=== PATIENT | female | born 1930 | race Caucasian/White ===

== ENCOUNTER 2017-11-24 11:20 | Inpatient (IN) ==
--- NOTE | 2017-11-24 11:45 | Emergency Department Note ---
ED Disposition Clinical Impression: Atrial fibrillation with slow ventricular response, Acute respiratory failure with hypoxia Pneumonia Qualifiers: Pneumonia type: due to unspecified organism Laterality: bilateral Lung location : lower lobe of lung Qualified Code(s): J18.1 - Lobar pneumonia, unspecified organism Hypotension Qualifiers: Hypotension type: unspecified hypotension type Qualified Code(s): I95.9 - Hypotension, unspecified Disposition: Admitted as Observation Condition on Discharge: Serious - Critical Care Critical Care Time: Yes Attestation: On 11/24/17, the high probability of a clinically significant, sudden or life threatening deterioration of the following system(s) required my full and direct attention, intervention and personal management. The time I documented below is in addition to time spent performing reported procedures but includes the following listed in this critical care notation. Total Critical Care Time: 45 Vital system(s) involved:: Circulatory Failure, Respiratory Failure My critical care processes included: Assessment & monitoring of V/S, Initial and Re-exams, Data Review/Interpretation, Coordinating Care, Medication Orders and management, Documentation Medical Decision Making - Alfredo Inquiry Pt receiving controlled substance: No Vital Signs: 11/24/17 11:23 11/24/17 11:52 11/24/17 14:22 Temperature 98 F Temperature Source Temporal Artery Scan Pulse Rate Pulse Rate [Right Brachial] 51 L 57 L 68 Respiratory Rate 16 26 H 16 Blood Pressure Blood Pressure [Right Arm] 110/55 111/61 118/70 Blood Pressure Mean [Right Arm] 73 77 86 Blood Pressure Source Blood Pressure Source [Right Arm] Automatic Cuff Blood Pressure Position Blood Pressure Position [Right Arm] Supine 02 Sat by Pulse Oximetry 98 100 99 Oxygen Delivery Method Nasal Cannula Non-Rebreather Oxygen Flow Rate (LPM) 15 11/24/17 15:00 11/24/17 15:08 11/24/17 16:00 Temperature 97.9 F Temperature Source Oral Pulse Rate Pulse Rate [Right Brachial] 68 73 Respiratory Rate 15 20 Blood Pressure Blood Pressure [Right Arm] 112/70 124/67 Blood Pressure Mean [Right Arm] 84 86 Blood Pressure Source Blood Pressure Source [Right Arm] Automatic Cuff Blood Pressure Position Blood Pressure Position [Right Arm] Supine 02 Sat by Pulse Oximetry 100 100 Oxygen Delivery Method Non-Rebreather Nasal Cannula Oxygen Flow Rate (LPM) 15 11/24/17 16:01 Temperature 98.0 F Temperature Source Tympanic Pulse Rate 68 Pulse Rate [Right Brachial] Respiratory Rate 15 Blood Pressure 112/70 Blood Pressure [Right Arm] Blood Pressure Mean [Right Arm] Blood Pressure Source Automatic Cuff Blood Pressure Source [Right Arm] Blood Pressure Position Sitting Blood Pressure Position [Right Arm] 02 Sat by Pulse Oximetry Oxygen Delivery Method Non-Rebreather Oxygen Flow Rate (LPM) - Lab Data Lab Results 11/24/17 11:37: WBC 16.3 H, RBC 4.19 L, Hgb 11.5 L, Hct 37.4, MCV 89.4, MCH 27.5 , MCHC 30.8 L, RDW 15.2, Plt Count 190, MPV 9.4, Neut % (Auto) 68.1, Lymph % ( Auto) 23.1, [place] % (Auto) 6.8, Eos % (Auto) 1.5, Baso % (Auto) 0.4, Neut # (Auto ) 11.1 H, Lymph # (Auto) 3.8, [place] # (Auto) 1.1 H, Eos # (Auto) 0.2, Baso # ( Auto) 0.1, Total Counted 100, Neutrophils % (Manual) 73, Lymphocytes % (Manual) 18, Atypical Lymphs % 1.0, Monocytes % (Manual) 7, Eosinophils % (Manual) 1, Nucleated RBCs 3, Platelet Estimate Normal, RBC Morphology Normal 11/24/17 11:37: Sodium 134 L, Potassium 5.6 H, Chloride 97 L, Carbon Dioxide 29 , Anion Gap 13.6, BUN 30 H, Creatinine 1.17 H, Estimated Creat Clear 26, Estimated GFR 44 L, Est GFR ( Amer) 53 L, Glucose 123 H, Calcium 9.0, Total Bilirubin 0.9, AST 30, ALT 34, Alkaline Phosphatase 83, Total Creatine Kinase 18 L, CK-MB (CK-2) 0.8, CK-MB (CK-2) Rel Index 4.4 H, Troponin I < 0.02, Total Protein 6.7, Albumin 3.1 L, Globulin 3.6 H, Albumin/Globulin Ratio 0.9 L, TSH 2.44, Free T4 Index 3.2 L, Thyroxine (T4) 7.9, T3 Uptake 41 H 11/24/17 11:37: B-Natriuretic Peptide 1290 H 11/24/17 11:50: Specimen Source Right radial, O2 % 100, ABG pH 7.35, ABG pCO2 46.5 H, ABG pO2 130.0 H, ABG HCO3 25.2, ABG Total CO2 26.6, ABG O2 Saturation 98 , ABG Base Excess -0.4, Gil Test Acceptable 11/24/17 14:26: Lactic Acid 1.6 Result diagrams: 11/24/17 11:37 11/24/17 11:37 Orders (Tests/Meds): ED MEDICATIONS Generic Name Dose Route Start Last Admin Trade Name Gayatri PRN Reason Stop Dose Admin Acetaminophen 650 mg 11/24/17 16:44 Acetaminophen 325mg Tab PO 12/24/17 16:43 Q4HP PRN As Needed for Fever or Pain Sodium Chloride 1,000 mls @ 75 mls/hr 11/24/17 16:44 11/24/17 17:07 Sod Chlor 0.9% 1000ml Bag IV 12/24/17 16:43 75 mls/hr .[id number] JEAN MARIE Administration Ertapenem 0.5 gm/ Sodium 50 mls @ 100 mls/hr 11/25/17 14:00 Chloride IV 12/08/17 13:59 Q24H JEAN MARIE Protocol Levofloxacin/Dextrose 500 mg in 100 mls @ 100 mls/hr 11/25/17 16:00 Levaquin 500mg/100ml Premix IV 12/08/17 15:59 Q24H JEAN MARIE Protocol Vancomycin HCl 1,000 mg/ 250 mls @ 125 mls/hr 11/25/17 18:00 Sodium Chloride IV 12/09/17 17:59 Q24H JEAN MARIE Miscellaneous 1 each 11/24/17 16:44 11/24/17 17:06 Vancomycin Consult Request NOTAPPLIC 11/24/17 16:45 Not Given CONSULT PHARMACY ONE Sodium Chloride 10 ml 11/24/17 16:44 Saline Flush 10ml Syringe IV 12/24/17 16:43 NEEDED PRN Maintain IV Site Discontinued Medications Generic Name Dose Route Start Last Admin Trade Name Freedgardo PRN Reason Stop Dose Admin Levofloxacin/Dextrose 750 mg in 150 mls @ 100 mls/hr 11/24/17 14:00 11/24/17 14:31 Levofloxacin 750mg/150ml Premix IV 12/08/17 13:59 100 mls/hr Q24H JEAN MARIE Administration Protocol Ertapenem 1 gm/ Sodium 50 mls @ 100 mls/hr 11/24/17 14:00 11/24/17 17:03 Chloride IV 12/08/17 13:59 Not Given Q24H JEAN MARIE Protocol Ertapenem 0.5 gm/ Sodium 50 mls @ 100 mls/hr 11/24/17 14:00 11/24/17 17:05 Chloride IV 12/08/17 13:59 100 mls/hr Q24H JEAN MARIE Administration Protocol Levofloxacin/Dextrose 500 mg in 100 mls @ 100 mls/hr 11/24/17 16:00 11/24/17 17:03 Levaquin 500mg/100ml Premix IV 12/08/17 15:59 Not Given Q24H JEAN MARIE Protocol Vancomycin HCl 1,000 mg/ 250 mls @ 125 mls/hr 11/24/17 17:00 Sodium Chloride IV 11/24/17 18:59 ONCE ONE Vancomycin HCl 750 mg/ Sodium 250 mls @ 125 mls/hr 11/25/17 17:00 Chloride IV 12/09/17 16:59 Q24H JEAN MARIE Vancomycin HCl 1,000 mg/ 250 mls @ 125 mls/hr 11/24/17 17:00 11/24/17 17:07 Sodium Chloride IV 11/24/17 18:59 Not Given ONCE ONE Vancomycin HCl 1,250 mg/ 250 mls @ 125 mls/hr 11/24/17 18:00 11/24/17 18:31 Sodium Chloride IV 11/24/17 19:59 125 mls/hr ONCE ONE Administration Miscellaneous 1 each 11/24/17 13:53 11/24/17 17:04 Vancomycin Consult Request NOTAPPLIC 11/24/17 13:54 1 each CONSULT PHARMACY ONE Administration ORDERS Category Date Time Status Consult to Physician [CONS] Routine Cons 11/24/17 16:44 Ordered CA echo doppler complete Routine Exams 11/24/17 16:44 Ordered Troponin I Q3H Lab 11/24/17 22:44 Ordered - ECG Data Tracing #1 EKG interpreted by Mika Howell MD: Rhythm: Narrow complex bradycardia, I believe this is slow atrial fibrillation, it is irregular. Some sawtooth waves between QRS complexes I believe to be flutter waves. Rate: 58-60 [place]: normal Ectopy: none Conduction: normal ST Segment Changes: Anterior depression T Wave Changes: Inferior and anterior inversion Q Waves: none No evidence of acute ischemia or injury I also reviewed EMS electrocardiogram which also appears to be slow atrial fibrillation Medical Decision Narrative: Heart rate in the 40s, pulse ox in the 60s on arrival on 2 L nasal cannula. Nonrebreather mask brings pulse ox into the 90s. Atropine raised heart rate to approximately 60. Irregular. Appears to be atrial fibrillation. I have discussed the case with Dr. Cabello for Dr. Mckeon who agrees to admit the patient to the hospital. We discussed the patient's clinical information, including history, exam, laboratory and radiology results and ED course. Per hospital procedure, I will write temporary bridge inpatient orders on the patient. Specific orders requested by the admitting physician: Antibiotics, IV fluids, oxygen, cardiology consultation, echocardiogram tomorrow. General Adult HPI - General Chief complaint: Arrhythmia/Palpitations Stated complaint: BRADYCARDIA Time Seen by Provider: 11/24/17 11:25 Mode of Arrival: EMS Limitations: No Limitations Description of Symptoms (Recalled from ER Triage Doc. by RN): DENIES ANY ISSUES ; [facility] REPORTED SLOW HR AND LOW BP; - History of Present Illness HPI narrative: Brought in by ambulance from [facility]. Report states low blood pressure and low heart rate. The patient herself denies any complaints. She denies any pain including chest pain. Initially denies shortness of air, although later in my interview states she is a little short of breath. Denies palpitations. Denies nausea or dizziness. Denies weakness. - Related Data Home Medications Medication Instructions Recorded Confirmed ALPRAZolam [Xanax 0.5mg tab] 0.5 mg PO TID 11/24/17 11/24/17 Acetaminophen 650 mg PO Q4HP PRN 11/24/17 11/24/17 Acetaminophen [Tylenol 500mg 500 mg PO TID 11/24/17 11/24/17 tablet] Albuterol Sulfate [Albuterol 1 vial IH TID 11/24/17 11/24/17 0.083% 2.5mg/3mL neb] Allopurinol [Allopurinol 100mg 100 mg PO BID 11/24/17 11/24/17 tablet] Aspirin [Aspirin 81mg chewable 81 mg PO DAILY 11/24/17 11/24/17 tab] Bisacodyl [Dulcolax 5mg Tab] 10 mg PO HS 11/24/17 11/24/17 Dextromethorphan Polistirex 30 mg PO BIDP PRN 11/24/17 11/24/17 [Delsym] Doxycycline Hyclate 100 mg PO BID 11/24/17 11/24/17 Furosemide [Lasix 20mg tab] 20 mg PO DAILY 11/24/17 11/24/17 Isosorbide Dinitrate [Isordil] 40 mg PO TID 11/24/17 11/24/17 Levothyroxine Sodium 25 mcg PO DAILY 11/24/17 11/24/17 [Levothyroxine 25mcg (0.025mg) Tab] Metoprolol Tartrate 100 mg PO BID 11/24/17 11/24/17 Mineral Oil/Petrolatum,White 3.5 gm OP HS 11/24/17 11/24/17 [Lubricant Eye Ointment] Mirtazapine 30 mg PO HS 11/24/17 11/24/17 Omeprazole [Omeprazole 20mg Tab] 20 mg PO DAILY 11/24/17 11/24/17 Ondansetron HCl [Zofran 4mg Tab] 4 mg PO Q6HP PRN 11/24/17 11/24/17 Potassium Chloride [Klor-Con 10mEq 10 meq PO DAILY 11/24/17 11/24/17 tab] Sodium Chloride/Aloe Vera [[place] 1 spray NS BID 11/24/17 11/24/17 Saline Nasal Gel [place]] dilTIAZem HCl [Diltiazem HCl] 90 mg PO TID 11/24/17 11/24/17 Allergies Allergy/AdvReac Type Severity Reaction Status Date / Time cephalexin [CEPHALEXIN] Allergy Mild Verified 11/24/17 14:29 erythromycin base Allergy Mild Verified 11/24/17 14:29 [ERYTHROMYCIN BASE] ezetimibe [From ZETIA] Allergy Mild Verified 11/24/17 14:29 naproxen [NAPROXEN] Allergy Mild Verified 11/24/17 14:29 oxaprozin [OXAPROZIN] Allergy Mild Verified 11/24/17 14:29 prednisone [PREDNISONE] Allergy Mild Verified 11/24/17 14:29 rofecoxib [From VIOXX] Allergy Mild Verified 11/24/17 14:29 simvastatin [From ZOCOR] Allergy Mild Verified 11/24/17 14:29 amoxicillin [From AUGMENTIN] Allergy Unknown Verified 11/24/17 14:29 clavulanic acid Allergy Unknown Verified 11/24/17 14:29 [From AUGMENTIN] [facility] History I have reviewed the patient's past medical history: Yes - Social History Educational Level: Completed High School Smoking Status: Never smoker Alcohol Intake: never - Psychiatric History Expresses thoughts of harming self/others: None Suicide Plan Description: No Plan ROS Obtained: Yes All systems reviewed & no additional complaints - Constitutional Constitutional: Denies fever(s), Denies weakness - Cardiovascular Cardiovascular: Denies chest pain, Denies palpitations, Denies fainting - Respiratory Respiratory: No dyspnea - Gastrointestinal Gastrointestingal: Denies: abdominal pain, diarrhea, vomiting - Neurologic Neurologic: Denies headache(s) Physical Exam - General General appearance: alert, in no apparent distress - Head Head exam: atraumatic, normocephalic, normal inspection - Eye Eye exam: Present: normal appearance, PERRL, EOMI - ENT ENT exam: Present: normal exam, normal oropharynx, mucous membranes moist - Neck Neck exam: Present: normal inspection, full ROM, trachea midline. Absent: meningismus, lymphadenopathy - Chest Chest inspection: Present: normal inspection, symmetric chest wall rise. Absent : tenderness - Respiratory Respiratory exam: Present: normal lung sounds bilaterally. Absent: respiratory distress - Cardiovascular Cardiovascular exam: Present: bradycardia, irregular rhythm. Absent: JVD - Abdominal Exam Abdominal exam: Present: soft, normal bowel sounds. Absent: distention, tenderness, guarding - Extremities Exam Extremities exam: Present: normal inspection, normal capillary refill, other ( Trace pretibial edema bilaterally). Absent: calf tenderness - Back Exam Back exam: Present: normal inspection. Absent: tenderness - Neurological Exam Neurological exam: Present: alert, oriented X3, CN II-XII intact. Absent: motor sensory deficit - Psychiatric Psychiatric exam: Present: normal affect, normal mood - Skin Skin exam: Present: warm, dry, intact, pallor - Lymphatic Lymphatic Findings: no adenopathy
[2017-11-24 11:52] LABS: ABG Base Excess -0.4 mmol/L (-2.4-2.3); ABG HCO3 25.2 mmhg (22.0-26.0); ABG Oxygen Saturation 98 % (90-100); ABG PCO2 46.5 mmhg (35.0-45.0); ABG PH 7.35 mmol/L (7.35-7.45); ABG TCO2 26.6 mmhg (23-27)
[2017-11-24 11:54] LABS: Allen's Test ACCEPTABLE; Oxygen 100 %
[2017-11-24 11:59] LABS: Basophils # 0.1 K/mm3 (0-0.2); Basophils % 0.4 % (0.1-2.0); Eosinophils # 0.2 K/mm3 (0.0-0.4); Eosinophils % 1.5 % (0.1-12.0); Hematocrit 37.4 % (37.0-47.0); Hemoglobin 11.5 g/dL (12.2-16.2); Lymphocytes # 3.8 K/mm3 (0.7-4.5); Lymphocytes % 23.1 K/mm3 (10-50); Mean Corpuscular HGB Conc 30.8 g/dL (31.8-35.4); Mean Corpuscular Hemoglobin 27.5 pg (27.0-31.2); Mean Corpuscular Volume 89.4 fl (81-99); Mean Platelet Volume 9.4 fl (7.4-10.4); Monocytes # 1.1 K/mm3 (0.1-1.0); Monocytes % 6.8 % (1.7-9.3); Neutrophils # 11.1 K/mm3 (1.8-7.8); Neutrophils % 68.1 % (37.0-80.0); Platelet Count 190 K/mm3 (142-424); Red Blood Count 4.19 M/mm3 (4.20-5.40); Red Cell Distribution Width 15.2 % (11.5-17.5); White Blood Count 16.3 K/mm3 (4.8-10.8)
[2017-11-24 12:14] LABS: Eosinophils % 1 % (0-3); Lymphocytes % 18 % (10-50); Monocytes % 7 % (2-9); Neutrophils % 73 % (42-76); Nucleated Red Blood Cells 3; RBC Morphology Normal; Total Cells Counted 100
[2017-11-24 12:16] LABS: Alanine Aminotransferase 34 U/L (12-78); Albumin Level 3.1 gm/dL (3.4-5.0); Albumin/Globulin Ratio 0.9 (1.1-1.8); Alkaline Phosphatase 83 U/L (46-116); Anion Gap 13.6 mEq/L (5-15); Aspartate Amino Transferase 30 U/L (15-37); Bilirubin,Total 0.9 mg/dL (0.2-1.0); Blood Urea Nitrogen 30 mg/dL (7-18); Carbon Dioxide 29 mmol/L (21.0-32.0); Chloride 97 mmol/L (98-107); Creatine Kinase 18 U/L (26-192); Free Thyroxine Index 3.2 ug/dL (5.93-13.13); Globulin 3.6 gm/dl (1.3-3.2); Glucose 123 mg/dL (74-106); Potassium 5.6 mmoL/L (3.5-5.1); Sodium 134 mmol/L (136-145); T4 (Thyroxine) 7.9 ug/dl (4.7-13.3); Thyroid Stimulating Hormone 2.44 uIU/ml (0.358-3.740); Total Protein,Serum 6.7 gm/dL (6.4-8.2); Triiodothryronine (T3) Uptake 41 % (31-39)
--- NOTE | 2017-11-24 15:50 | Pharmacy Consult Notes ---
- Pharmacy Consult Date: 11/24/17 Time: 15:43 Referring provider: DR. ROPER Reason for Consult:: VANCOMYCIN DOSING Allergies and ADEs:: Allergies Allergy/AdvReac Type Severity Reaction Status Date / Time cephalexin [CEPHALEXIN] Allergy Mild Verified 11/24/17 14:29 erythromycin base Allergy Mild Verified 11/24/17 14:29 [ERYTHROMYCIN BASE] ezetimibe [From ZETIA] Allergy Mild Verified 11/24/17 14:29 naproxen [NAPROXEN] Allergy Mild Verified 11/24/17 14:29 oxaprozin [OXAPROZIN] Allergy Mild Verified 11/24/17 14:29 prednisone [PREDNISONE] Allergy Mild Verified 11/24/17 14:29 rofecoxib [From VIOXX] Allergy Mild Verified 11/24/17 14:29 simvastatin [From ZOCOR] Allergy Mild Verified 11/24/17 14:29 amoxicillin [From AUGMENTIN] Allergy Unknown Verified 11/24/17 14:29 clavulanic acid Allergy Unknown Verified 11/24/17 14:29 [From AUGMENTIN] Home Medications:: Home Medications Medication Instructions Recorded Confirmed Type ALPRAZolam [Xanax 0.5mg tab] 0.5 mg PO TID 11/24/17 11/24/17 History Acetaminophen 650 mg PO Q4HP PRN 11/24/17 11/24/17 History Albuterol Sulfate [Albuterol 3 ml IH TID 11/24/17 11/25/17 History 0.083% 2.5mg/3mL neb] Aspirin [Aspirin 81mg chewable 81 mg PO DAILY 11/24/17 11/24/17 History tab] Bisacodyl [Dulcolax 5mg Tab] 10 mg PO HS 11/24/17 11/24/17 History Dextromethorphan Polistirex 30 mg PO BIDP PRN 11/24/17 11/24/17 History [Delsym] Isosorbide Dinitrate [Isordil] 40 mg PO TID 11/24/17 11/24/17 History Levothyroxine Sodium 25 mcg PO DAILY 11/24/17 11/24/17 History [Levothyroxine 25mcg (0.025mg) Tab] Mineral Oil/Petrolatum,White 3.5 gm OP HS 11/24/17 11/24/17 History [Lubricant Eye Ointment] Mirtazapine 30 mg PO HS 11/24/17 11/24/17 History Omeprazole [Omeprazole 20mg Tab] 20 mg PO DAILY 11/24/17 11/24/17 History Ondansetron HCl [Zofran 4mg Tab] 4 mg PO Q6HP PRN 11/24/17 11/24/17 History Potassium Chloride [Klor-Con 10mEq 10 meq PO DAILY 11/24/17 11/24/17 History tab] Sodium Chloride/Aloe Vera [[place] 1 spray NS BID 11/24/17 11/24/17 History Saline Nasal Gel [place]] Height: 1.52 m Weight: 49.895 kg Laboratory Results:: Laboratory Results - last 24 hr 11/24/17 14:26: Lactic Acid 1.6 Assessment and Plan - Assessment and plan all Dx Assessment and Plan for all problems:: BASED ON PATIENT FACTORS, RECOMMEND VANCOMYCIN 1 GM IV ONCE, FOLLOWED BY VANCOMYCIN 750 MG IV Q24H. PHARMACY WILL FOLLOW DAILY AND ADJUST APPROPRIATE.
--- NOTE | 2017-11-25 07:32 | Pharmacy Consult Notes ---
[facility] Pharmacy VTE Monitoring - Patient Demographics Admission date: 11/24/17 Report Date: 11/25/17 Time: 07:32 Allergies/Adverse Reactions: Patient Allergies cephalexin [CEPHALEXIN] Allergy (Mild, Verified 11/24/17 14:29) erythromycin base [ERYTHROMYCIN BASE] Allergy (Mild, Verified 11/24/17 14:29) ezetimibe [From ZETIA] Allergy (Mild, Verified 11/24/17 14:29) naproxen [NAPROXEN] Allergy (Mild, Verified 11/24/17 14:29) oxaprozin [OXAPROZIN] Allergy (Mild, Verified 11/24/17 14:29) prednisone [PREDNISONE] Allergy (Mild, Verified 11/24/17 14:29) rofecoxib [From VIOXX] Allergy (Mild, Verified 11/24/17 14:29) simvastatin [From ZOCOR] Allergy (Mild, Verified 11/24/17 14:29) amoxicillin [From AUGMENTIN] Allergy (Unknown, Verified 11/24/17 14:29) clavulanic acid [From AUGMENTIN] Allergy (Unknown, Verified 11/24/17 14:29) Height: 1.52 m Weight: 49.895 kg Patient Problems: Current Active Problems Pneumonia (Acute) Atrial fibrillation with slow ventricular response (Acute) Hypotension (Acute) Acute respiratory failure with hypoxia (Acute) - VTE Risk Labs: VTE Related Lab Results Hgb 11.5 g/dL (12.2-16.2) L 11/24/17 11:37 Hct 37.4 % (37.0-47.0) 11/24/17 11:37 Plt Count 190 K/mm3 (142-424) 11/24/17 11:37 BUN 30 mg/dL (7-18) H 11/24/17 11:37 Creatinine 1.17 mg/dL (0.55-1.02) H 11/24/17 11:37 Estimated Creat Clear 26 mL/min (0-300) 11/24/17 11:37 Was VTE Risk Assessment Performed: Yes VTE Score: 2 VTE Risk Level: Low Risk - Prophylaxis VTE Prophylaxis Ordered?: Yes Types of VTE Prophylaxis: TEDS Knee High Location of Applied Device: Bilateral Lower Extremeties - VTE Diagnosis Confirmed Treatment or plan recommended: Continue Current Treatment
--- NOTE | 2017-11-25 08:47 | H&P/Discharge Summary ---
General - General Admission date: 11/24/17 Discharge date: 11/25/17 *Admission Date: 11/24/17 *Chief complaint: Weakness *History of present illness: 87-year-old white female, longtime resident of [facility] [place] with diagnosis of progressive dysfunction and functional decline secondary to her underlying diseases which include pulmonary fibrosis and history of frontal lobe hemorrhage with worsening dementia over the past several months. She had had increasing problems with hypoxia, bradycardia and functional decline issues and family had made the decision to keep her at [facility] for palliative care but unfortunately the [facility] staff called the on-call physician over the weekend who did not know this decision and patient was transferred to the hospital where ER evaluation revealed significant bradycardia , AV block and she was admitted for cardiology consultation, echocardiogram and some further diagnostic testing. In conversation with her daughter this morning she does not wish any of this done, and wishes to transition to comfort care only. [facility] History Medical History: Reports:: Atrial Fibrillation, Cerebrovascular Accident ( History of frontal lobe hemorrhage), Hyperlipidemia, Hypertension, Peripheral Vascular Disease Denies:: Cancer, Diabetes Mellitus Type 1, Diabetes Mellitus Type 2, Internal Pacemaker, MRSA Other Medical History: Reports: Anemia, Hypothyroidism Other Surgeries: No: Pacemaker Amputation: No - *Social History Educational Level: Completed High School Smoking Status: Never smoker Alcohol Intake: never Occupational Status: unemployed Housing: long-term - Psychiatric History Expresses thoughts of harming self/others: None Suicide Plan Description: No Plan *Family Hx:: Unable to obtain Review of Systems - Review of Systems Review of systems:: unable to obtain - *Neurologic Denies headache(s), Denies fainting, Denies weakness Exam Vital signs and Labs for Last 24 Hours: Temp Pulse Resp BP Pulse Ox 98.4 F 90 16 151/64 96 11/25/17 08:00 11/25/17 08:00 11/25/17 08:00 11/25/17 08:00 11/25/17 08:00 Laboratory Results - last 24 hr 11/24/17 11:37: WBC 16.3 H, RBC 4.19 L, Hgb 11.5 L, Hct 37.4, MCV 89.4, MCH 27.5 , MCHC 30.8 L, RDW 15.2, Plt Count 190, MPV 9.4, Neut % (Auto) 68.1, Lymph % ( Auto) 23.1, [place] % (Auto) 6.8, Eos % (Auto) 1.5, Baso % (Auto) 0.4, Neut # (Auto ) 11.1 H, Lymph # (Auto) 3.8, [place] # (Auto) 1.1 H, Eos # (Auto) 0.2, Baso # ( Auto) 0.1, Total Counted 100, Neutrophils % (Manual) 73, Lymphocytes % (Manual) 18, Atypical Lymphs % 1.0, Monocytes % (Manual) 7, Eosinophils % (Manual) 1, Nucleated RBCs 3, Platelet Estimate Normal, RBC Morphology Normal 11/24/17 11:37: Sodium 134 L, Potassium 5.6 H, Chloride 97 L, Carbon Dioxide 29 , Anion Gap 13.6, BUN 30 H, Creatinine 1.17 H, Estimated Creat Clear 26, Estimated GFR 44 L, Est GFR ( Amer) 53 L, Glucose 123 H, Calcium 9.0, Total Bilirubin 0.9, AST 30, ALT 34, Alkaline Phosphatase 83, Total Creatine Kinase 18 L, CK-MB (CK-2) 0.8, CK-MB (CK-2) Rel Index 4.4 H, Troponin I < 0.02, Total Protein 6.7, Albumin 3.1 L, Globulin 3.6 H, Albumin/Globulin Ratio 0.9 L, TSH 2.44, Free T4 Index 3.2 L, Thyroxine (T4) 7.9, T3 Uptake 41 H 11/24/17 11:37: B-Natriuretic Peptide 1290 H 11/24/17 11:50: Specimen Source Right radial, O2 % 100, ABG pH 7.35, ABG pCO2 46.5 H, ABG pO2 130.0 H, ABG HCO3 25.2, ABG Total CO2 26.6, ABG O2 Saturation 98 , ABG Base Excess -0.4, Gil Test Acceptable 11/24/17 14:26: Lactic Acid 1.6 11/24/17 16:55: Troponin I < 0.02 11/24/17 19:23: Troponin I < 0.02 11/24/17 22:55: Troponin I < 0.02 I & O for Last 24 hours: Intake & Output 11/22/17 11/23/17 11/24/17 11/25/17 11:59 11:59 11:59 11:59 Intake Total 1068 / 1068 Output Total 950 / 950 Balance 118 / 118 Weight 110 lb 110 lb Narrative: Patient is awake and responsive minimally to stimuli. Pulse rate in the 60s. Patient wearing oxygen mask. Heart rate regular but bradycardic. Lungs have poor air movement, patient is minimally responsive and neurologic examination was not performed. Hospital Course Hospital Course: She was admitted, we conversed with family about her wishes. Because they do not wish hospital care and wished palliative/comfort care at her current residential facility we will transfer back today with hospice consultation. She will need nasal cannula oxygen, titrate to saturations greater than 85%. Other medications will remain as noted. Results Labs on day of discharge: Labs from last 24 hours 11/24/17 11/24/17 11/24/17 22:55 19:23 16:55 WBC RBC Hgb Hct MCV MCH MCHC RDW Plt Count MPV Neut % (Auto) Lymph % (Auto) [place] % (Auto) Eos % (Auto) Baso % (Auto) Neut # (Auto) Lymph # (Auto) [place] # (Auto) Eos # (Auto) Baso # (Auto) Total Counted Neutrophils % (Manual) Lymphocytes % (Manual) Atypical Lymphs % Monocytes % (Manual) Eosinophils % (Manual) Nucleated RBCs Platelet Estimate RBC Morphology Specimen Source O2 % ABG pH ABG pCO2 ABG pO2 ABG HCO3 ABG Total CO2 ABG O2 Saturation ABG Base Excess Gil Test Sodium Potassium Chloride Carbon Dioxide Anion Gap BUN Creatinine Estimated Creat Clear Estimated GFR Est GFR ( Amer) Glucose Lactic Acid Calcium Total Bilirubin AST ALT Alkaline Phosphatase Total Creatine Kinase CK-MB (CK-2) CK-MB (CK-2) Rel Index Troponin I < 0.02 < 0.02 < 0.02 B-Natriuretic Peptide Total Protein Albumin Globulin Albumin/Globulin Ratio TSH Free T4 Index Thyroxine (T4) T3 Uptake 11/24/17 11/24/17 11/24/17 14:26 11:50 11:37 WBC RBC Hgb Hct MCV MCH MCHC RDW Plt Count MPV Neut % (Auto) Lymph % (Auto) [place] % (Auto) Eos % (Auto) Baso % (Auto) Neut # (Auto) Lymph # (Auto) [place] # (Auto) Eos # (Auto) Baso # (Auto) Total Counted Neutrophils % (Manual) Lymphocytes % (Manual) Atypical Lymphs % Monocytes % (Manual) Eosinophils % (Manual) Nucleated RBCs Platelet Estimate RBC Morphology Specimen Source Right radial O2 % 100 ABG pH 7.35 ABG pCO2 46.5 H ABG pO2 130.0 H ABG HCO3 25.2 ABG Total CO2 26.6 ABG O2 Saturation 98 ABG Base Excess -0.4 Gil Test Acceptable Sodium Potassium Chloride Carbon Dioxide Anion Gap BUN Creatinine Estimated Creat Clear Estimated GFR Est GFR ( Amer) Glucose Lactic Acid 1.6 Calcium Total Bilirubin AST ALT Alkaline Phosphatase Total Creatine Kinase CK-MB (CK-2) CK-MB (CK-2) Rel Index Troponin I B-Natriuretic Peptide 1290 H Total Protein Albumin Globulin Albumin/Globulin Ratio TSH Free T4 Index Thyroxine (T4) T3 Uptake 11/24/17 11/24/17 11:37 11:37 WBC 16.3 H RBC 4.19 L Hgb 11.5 L Hct 37.4 MCV 89.4 MCH 27.5 MCHC 30.8 L RDW 15.2 Plt Count 190 MPV 9.4 Neut % (Auto) 68.1 Lymph % (Auto) 23.1 [place] % (Auto) 6.8 Eos % (Auto) 1.5 Baso % (Auto) 0.4 Neut # (Auto) 11.1 H Lymph # (Auto) 3.8 [place] # (Auto) 1.1 H Eos # (Auto) 0.2 Baso # (Auto) 0.1 Total Counted 100 Neutrophils % (Manual) 73 Lymphocytes % (Manual) 18 Atypical Lymphs % 1.0 Monocytes % (Manual) 7 Eosinophils % (Manual) 1 Nucleated RBCs 3 Platelet Estimate Normal RBC Morphology Normal Specimen Source O2 % ABG pH ABG pCO2 ABG pO2 ABG HCO3 ABG Total CO2 ABG O2 Saturation ABG Base Excess Gil Test Sodium 134 L Potassium 5.6 H Chloride 97 L Carbon Dioxide 29 Anion Gap 13.6 BUN 30 H Creatinine 1.17 H Estimated Creat Clear 26 Estimated GFR 44 L Est GFR ( Amer) 53 L Glucose 123 H Lactic Acid Calcium 9.0 Total Bilirubin 0.9 AST 30 ALT 34 Alkaline Phosphatase 83 Total Creatine Kinase 18 L CK-MB (CK-2) 0.8 CK-MB (CK-2) Rel Index 4.4 H Troponin I < 0.02 B-Natriuretic Peptide Total Protein 6.7 Albumin 3.1 L Globulin 3.6 H Albumin/Globulin Ratio 0.9 L TSH 2.44 Free T4 Index 3.2 L Thyroxine (T4) 7.9 T3 Uptake 41 H Discharge Medications Discharge Medications: Home Medications Medication Instructions Recorded Confirmed Type ALPRAZolam [Xanax 0.5mg tab] 0.5 mg PO TID 11/24/17 11/24/17 History Acetaminophen 650 mg PO Q4HP PRN 11/24/17 11/24/17 History Acetaminophen [Tylenol 500mg 500 mg PO TID 11/24/17 11/24/17 History tablet] Albuterol Sulfate [Albuterol 3 ml IH TID 11/24/17 11/25/17 History 0.083% 2.5mg/3mL neb] Allopurinol [Allopurinol 100mg 100 mg PO BID 11/24/17 11/24/17 History tablet] Aspirin [Aspirin 81mg chewable 81 mg PO DAILY 11/24/17 11/24/17 History tab] Bisacodyl [Dulcolax 5mg Tab] 10 mg PO HS 11/24/17 11/24/17 History Dextromethorphan Polistirex 30 mg PO BIDP PRN 11/24/17 11/24/17 History [Delsym] Doxycycline Hyclate 100 mg PO BID 11/24/17 11/24/17 History Furosemide [Lasix 20mg tab] 20 mg PO DAILY 11/24/17 11/24/17 History Isosorbide Dinitrate [Isordil] 40 mg PO TID 11/24/17 11/24/17 History Levothyroxine Sodium 25 mcg PO DAILY 11/24/17 11/24/17 History [Levothyroxine 25mcg (0.025mg) Tab] Metoprolol Tartrate 100 mg PO BID 11/24/17 11/24/17 History Mineral Oil/Petrolatum,White 3.5 gm OP HS 11/24/17 11/24/17 History [Lubricant Eye Ointment] Mirtazapine 30 mg PO HS 11/24/17 11/24/17 History Omeprazole [Omeprazole 20mg Tab] 20 mg PO DAILY 11/24/17 11/24/17 History Ondansetron HCl [Zofran 4mg Tab] 4 mg PO Q6HP PRN 11/24/17 11/24/17 History Potassium Chloride [Klor-Con 10mEq 10 meq PO DAILY 11/24/17 11/24/17 History tab] Sodium Chloride/Aloe Vera [[place] 1 spray NS BID 11/24/17 11/24/17 History Saline Nasal Gel [place]] dilTIAZem HCl [Diltiazem HCl] 90 mg PO TID 11/24/17 11/24/17 History Disposition Disposition: Hospice - Medical Facility
== END 2017-11-25 10:30 | disposition hospice, inpatient (51) ==
LOC: ER 11:20 → 2ND 11:20 → OBSVTOIN 15:54 → 2ND 16:02
PROVIDERS: ADMIT Emergency Medicine; ATTEND Internal Medicine Adolescent Medicine